=== PATIENT | male | born 1985 | race Caucasian/White ===

== ENCOUNTER → 2017-01-19 | Outpatient (CLI) | payer BC ==
[~2017-01-19] MED LIST: CETI10TA84 PO
--- NOTE | 2017-01-19 09:00 | DIAGNOSTIC IMAGING REPORT ---
BILIARY ULTRASOUND CLINICAL HISTORY: RUQ PAIN,TENDERNESS COMPARISON STUDY: No previous studies for comparison. FINDINGS: The gallbladder appears sonographically normal. The pancreas appears sonographically normal. There is no ductal dilatation. The common bile duct measures 4 mm. There is no right-sided hydronephrosis. There are no hepatic masses. IMPRESSION: Normal biliary ultrasound Electronically signed by: Chapin Mckee M.D. 01/19/2017 8:59 AM Dictated Date/Time: 01/19/2017 8:58 AM
== END | disposition home or self-care (01) ==
LOC: C.ULTR 08:33
PROVIDERS: ATTEND Physician Assistant Medical
DX: R10.811 Right upper quadrant abdominal tenderness (principal)

== ENCOUNTER → 2017-04-05 | Outpatient (CLI) | payer BC ==
[~2017-04-05] MED LIST changes: +SINCALIDE INJ 2.2 MCG in SODIUM CHLORIDE 0.9% 100ML 100 ML IV SCH
--- NOTE | 2017-04-05 11:27 | DIAGNOSTIC IMAGING REPORT ---
HEPATOBILIARY EF IMAGING HISTORY: R10.811 Right upper quadrant abdominal tenderness. TECHNIQUE: Following the intravenous administration of 5.2 mCi of technetium-99m Choletec, sequential abdominal images were obtained. In order to evaluate the contractile response of the gallbladder, 2.2 mcg of Kinevac was administered by slow intravenous infusion over 45 min starting approximately 65 min after the administration of the radiopharmaceutical. Sequential imaging was continued for 60 min after the start of the Kinevac infusion. COMPARISON: Right upper quadrant ultrasound 01/19/2017. FINDINGS: There is prompt, uniform accumulation of the tracer by the liver. There is normal filling of the intrahepatic ducts, common bile duct and gallbladder and normal excretion of the tracer into the duodenum. There is decreased contraction of the gallbladder. The calculated gallbladder ejection fraction is 20% (normal >40%). There is moderate enterogastric reflux. IMPRESSION: 1. Decreased contractile response of the gallbladder to Kinevac infusion. 2. Moderate enterogastric reflux. The above report was generated using voice recognition software. It may contain grammatical, syntax or spelling errors. Electronically signed by: August Dotson M.D. 04/05/2017 11:26 AM Dictated Date/Time: 04/05/2017 11:22 AM
== END | disposition home or self-care (01) ==
LOC: C.NUCL 08:12
PROVIDERS: ATTEND Internal Medicine
DX: R10.811 Right upper quadrant abdominal tenderness (principal); K83.8 Other specified diseases of biliary tract